=== PATIENT | male | born 1995 | race Caucasian/White ===

== ENCOUNTER 2018-02-08 12:11 | Outpatient (CLI) ==
--- NOTE | 2018-02-08 12:36 | DI ---
EXAM: Three views of the right ankle. History: Right ankle pain and trauma. Findings: No acute fracture or dislocation. No abnormal calcifications or radiopaque foreign bodies . Joint spaces are preserved. Impression: No acute osseous abnormality
--- NOTE | 2018-02-08 12:38 | DI ---
EXAM: Three views of the right foot. History: Right foot pain. Findings: No acute fracture or dislocation. No abnormal calcifications or radiopaque foreign bodies . There is subtle cortical irregularity and lucency involving the first tarsometatarsal joint. Impression: Subtle cortical irregularity and lucency involving the first tarsometatarsal joint proba nikita degenerative in nature. Correlate with area of tenderness.
== END 2018-02-08 12:12 | disposition home or self-care (01) ==
LOC: RAD 12:11
PROVIDERS: ATTEND Physician Assistant
DX: M79.671 Pain in right foot (principal)